=== PATIENT | female | born 1995 | race Caucasian/White ===

== ENCOUNTER 2019-02-22 14:41 | Emergency (ER) | payer OTHER ==
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
[2019-02-22 15:17] VITALS: BP 130/85; PULSE 79; TEMP 98.2; BMI 20.1
[2019-02-22 15:31] LABS: HCG,QUALITATIVE URINE Negative
[2019-02-22 16:00] LABS: EPITHELIAL CELLS FEW /hpf
== END 2019-02-22 15:50 | disposition home or self-care (01) ==
LOC: FER 14:41 → SUPCPDRO 14:41 → FER 15:50
DX: N92.1 Excessive and frequent menstruation with irregular cycle (principal)
CPT/HCPCS: 81003; 81015; 84703; 99282-25